=== PATIENT | female | born 1930 | race Caucasian/White ===

== ENCOUNTER → 2017-03-29 | Outpatient (CLI) | payer OTHER, BC ==
[~2017-03-29] MED LIST: MEDROLDOSEPACK PO; NORCO 5-325 TA1 EACH PO; NORFLEX100 MG PO; VALIUM2 MG PO
== END ==
LOC: RAD 09:14
DX: J44.9 Chronic obstructive pulmonary disease, unspecified (principal); I10 Essential (primary) hypertension; J18.9 Pneumonia, unspecified organism; K50.10 Crohn's disease of large intestine without complications; L29.9 Pruritus, unspecified